=== PATIENT | female | born 1985 | race Caucasian/White ===

== ENCOUNTER 2018-08-05 18:51 | Emergency (ER) | payer BC, OTHER ==
[2018-08-05] MEDS ORDERED: Ondansetron PF 4 MG/2 ML Vial ONE ×2 (19:20→21:43)
[2018-08-05] MEDS ORDERED: Morphine 4 MG/ML VIAL ONE ×2 (19:20→21:43)
[2018-08-05 20:35] LABS: ALT (SGPT) 19 U/L (8-55); AST (SGOT) 21 U/L (5-34); Albumin 4.5 g/dL (3.5-5.0); Alkaline Phosphatase 98 U/L (40-150); Anion Gap 19 mmol/L (10-20); BUN (Urea Nitrogen) 9 mg/dL (7.0-18.7); Bilirubin, Total 0.6 mg/dL (0.2-1.2); Calc. Creatinine Clearance 0 mL/min (70-130); Calcium 11.9 mg/dL (7.8-10.44); Carbon Dioxide 24 mmol/L (22-29); Chloride 90 mmol/L (98-107); Estimated GFR-MDRD 71; Glucose 277 mg/dL (70-105); Lipase 58 U/L (8-78); Potassium 3.4 mmol/L (3.5-5.1); Protein, Total 8.5 g/dL (6.0-8.3); Sodium 130 mmol/L (136-145)
[2018-08-05 20:42] LABS: #Basophils 0.1 thou/uL (0.0-0.2); #Eosinphils 0.3 thou/uL (0.0-0.7); #Lymphocytes 2.3 thou/uL (1.20-3.40); #Monocytes 0.6 thou/uL (0.11-0.59); #Neutrophils 9.2 thou/uL (1.40-6.50); %Basophils 0.4 % (0.0-1.0); %Eosinophils 2.2 % (0.0-10.0); %Lymphocytes 18.7 % (21.0-51.0); %Neutrophils 73.7 % (42.0-75.0); Hemoglobin 14.6 g/dL (12.0-16.0); Mean Corpuscular HGB CONC 36.2 g/dL (32.0-36.0); Mean Corpuscular Volume 85.6 fL (78.0-98.0); Mean Platelet Volume 7.8 fL (7.4-10.4); Platelet Count 392 thou/uL (130-400); RBC Distribution Width 13.4 % (11.5-14.5); White Blood Cell (WBC) Count 12.5 thou/uL (4.8-10.8)
[2018-08-05 20:44] LABS: Bilirubin Negative (Negative); Blood, Urine Trace (Negative); Clarity CLOUDY (Clear); Glucose, Urine (Dipstick) 100 mg/dL (Negative); Leukocyte Negative (Negative); Nitrite Negative (Negative); Protein, Urine (Dipstick) 100 mg/dL (Neg-Trace); Specific Gravity, Urine 1.014 (1.002-1.036); Urobilinogen 0.2 mg/dL (0.2-1.0)
[2018-08-05 20:46] LABS: Bacteria/HPF None Seen HPF (None Seen); Hyaline Casts/LPF 0-3 HYALINE CAST LPF (0-3 Hyaline); RBC/HPF 0-3 HPF (0-3); Squamous Epithelial 0-3 HPF (0-3)
[2018-08-05 20:47] LABS: Pregnancy Test - Urine (BHCG) Negative (Negative); Pregu Control Background? CLEAR/WHITE (CLR/WHITE); Pregu Control Bar Appear? YES (CONTROL BAR); Specific Gravity 1.014 (1.002-1.036)
--- NOTE | 2018-08-05 21:23 | CT ---
CT OF ABDOMEN AND PELVIS PERFORMED WITH INTRAVENOUS CONTRAST ENHANCEMENT: 08/05/18 HISTORY: Diffuse abdominal pain. History of colitis. UTI one week ago. The lung bases are clear. There are fatty changes of the liver which is enlarged measuring 26 cm in length. There is an enhanci ng focus in the dome of the liver which has probably a small hemangioma. It could indicate an area of fatty sparing. The spleen measures 14 cm in length but is a somewhat thin elongated spleen. Pancreas and gallbladder regions appear unremarkable. Right and left adrenal glands are normal. Right and left kidneys are normal in size. There is a punct ate nonobstructing upper pole left renal calculus present. Tiny hypodensity involving the left kidney statistically most likely a cyst. There are no ureteral calculi identified. There is no significant periaortic adenopathy noted. There is slightly a claudio appearance to the mesentery with some small mesenteric nodes, nonspecific but po ssibly an adenitis. Some minimal fluid within the small bowel loops but not significantly distended. The colon is decompressed. CT OF PELVIS PERFORMED WITH CONTRAST ENHANCEMENT: The appendix is normal. There is no evidence of adenopathy, mass or free fluid. IMPRESSION: 1. Fatty change of the liver which is enlarged. 2. Nonobstructing upper pole left renal calculus. 3. Possible mild adenitis. POS: [facility]
== END 2018-08-05 22:43 | disposition home or self-care (01) ==
LOC: ERS 18:51
DX: R10.84 Generalized abdominal pain (principal); R11.2 Nausea with vomiting, unspecified; F17.210 Nicotine dependence, cigarettes, uncomplicated; I10 Essential (primary) hypertension; Z79.899 Other long term (current) drug therapy; Z79.891 Long term (current) use of opiate analgesic
CPT/HCPCS: 74177; 80053; 81003; 81015; 81025; 83690; 85025; 94760; J2270; J2405

== ENCOUNTER 2018-09-21 10:06 | Emergency (ER) | payer BC, OTHER ==
[2018-09-21] MEDS ORDERED: Lidocaine Viscous Sol 2% 15 ml UD Cup ONE (10:53)
[2018-09-21] MEDS ORDERED: Mag-Al 1200 mg/1200 mg/30 ML UDCUP ONE (10:53)
--- NOTE | 2018-09-21 10:54 | RAD ---
Exam: Chest one view HISTORY:Chest pain Comparison: None FINDINGS: Cardiac silhouette: Normal Pulmonary vessels: Normal Costophrenic angles: Clear LUNGS: No masses or consolidation. Pneumothorax: None Osseous abnormalities: None IMPRESSION: No acute cardiopulmonary process.
[2018-09-21 11:24] LABS: BHCG - Serum Negative (NEGATIVE); Pregs Control Background? CLEAR/WHITE (CLR/WHITE); Pregs Control Bar Appear? YES (CONTROL BAR)
[2018-09-21 11:39] LABS: Chloride 95 mmol/L (98-107); Potassium 4.2 mmol/L (3.5-5.1); Sodium 132 mmol/L (136-145)
[2018-09-21 11:40] LABS: Anion Gap 18 mmol/L (10-20); Carbon Dioxide 23 mmol/L (22-29)
[2018-09-21 11:42] LABS: BUN (Urea Nitrogen) 17 mg/dL (7.0-18.7); Calc. Creatinine Clearance 0 mL/min (70-130); Calcium 9.4 mg/dL (7.8-10.44); Estimated GFR-MDRD 83; Glucose 373 mg/dL (70-105)
[2018-09-21 11:43] LABS: AST (SGOT) 18 U/L (5-34); Albumin 3.7 g/dL (3.5-5.0); Alkaline Phosphatase 83 U/L (40-150); Bilirubin, Total 0.4 mg/dL (0.2-1.2); Globulin 1.9 g/dL (2.4-3.5); Protein, Total 5.6 g/dL (6.0-8.3)
[2018-09-21] MEDS ORDERED: Ketorolac Tromethamine 30 MG/ML VIAL ONE (11:43)
[2018-09-21 11:44] LABS: ALT (SGPT) 10 U/L (8-55)
[2018-09-21] MEDS ORDERED: Ondansetron PF 4 MG/2 ML Vial ONE (11:44)
[2018-09-21 12:29] LABS: Eosinophils 1 % (0-10); Hemoglobin 12.7 g/dL (12.0-16.0); Lymphocytes 6 % (21-51); MDiff Complete? YES; Mean Corpuscular HGB CONC 37.7 g/dL (32.0-36.0); Mean Corpuscular Hemoglobin 31.3 pg (27.0-31.0); Mean Platelet Volume 7.2 fL (7.4-10.4); Monocytes 7 % (0-10); Neutrophil 86 % (42-75); Platelet Count 277 thou/uL (130-400); Platelet Morphology Comment Appears Adequate; RBC Distribution Width 12.6 % (11.5-14.5); Red Blood Cell (RBC) Count 4.06 mill/uL (4.20-5.40); White Blood Cell (WBC) Count 14.9 thou/uL (4.8-10.8)
--- NOTE | 2018-09-21 13:48 | CT ---
Exam: CT angiogram of the chest HISTORY: Chest pain. COMPARISON: None TECHNIQUE: CT angiogram of the chest is performed in the axial plane. Three-dimensional reformatted i mages are submitted for interpretation FINDINGS: Mediastinum: No mass, lymphadenopathy or hematoma. HEART: Normal size. No significant pericardial fluid. Aorta: No aneurysm or dissection Upper solid abdominal viscera: No abnormality enhancement. Trachea and central bronchi: Patent Pleural spaces: No effusion Lung parenchyma: No masses or consolidation. Pneumothorax: None Osseous structures: No lytic or blastic lesions Pulmonary arteries: Adequate contrast opacification pulmonary arterial system to the level of lobar a rteries. No filling defect to suggest pulmonary embolism. Limited evaluation of the segmental and subsegmental arteries due to timing of contrast bolus IMPRESSION:No evidence of pulmonary artery embolism to the level of the lobar arteries.
[2018-09-21] MEDS ORDERED: ISOVUE-370 76%-LOCM 1 ML ONE (13:49)
== END 2018-09-21 14:46 | disposition home or self-care (01) ==
LOC: ERS 10:06
DX: R07.89 Other chest pain (principal); R73.9 Hyperglycemia, unspecified; N17.9 Acute kidney failure, unspecified; I10 Essential (primary) hypertension; J45.909 Unspecified asthma, uncomplicated; F32.9 Major depressive disorder, single episode, unspecified; F43.10 Post-traumatic stress disorder, unspecified; Z79.899 Other long term (current) drug therapy
CPT/HCPCS: 36416; 71045; 71275; 80053; 84484; 84703; 85025; 93005; 96361; 96374; 96375; J1885; J2405; Q9966

== ENCOUNTER 2018-09-27 19:27 | Inpatient (IN) | payer BC, OTHER ==
[~2018-09-27 19:27] MED LIST: Iopamidol 370 76% 100 ML VIAL ONE
[2018-09-27 20:20] LABS: Bilirubin Negative (Negative); Blood, Urine Negative (Negative); Clarity Clear (Clear); Glucose, Urine (Dipstick) Greater than 1000 mg/dL (Negative); Leukocyte Negative Leu/uL (Negative); Nitrite Negative (Negative); Protein, Urine (Dipstick) 30 mg/dL (Neg-Trace); RBC/HPF 0-3 HPF (0-3); Urobilinogen Normal mg/dL (Less than 2); WBC/HPF 0-3 HPF (0-3)
[2018-09-27 20:21] LABS: Bacteria/HPF 1+ HPF (None Seen)
[2018-09-27 20:23] LABS: Pregnancy Test - Urine (BHCG) Negative (Negative)
[2018-09-27 20:24] LABS: Pregu Control Background? CLEAR/WHITE (CLR/WHITE); Pregu Control Bar Appear? YES (CONTROL BAR); Specific Gravity 1.026 (1.002-1.036)
[2018-09-27 20:26] LABS: #Eosinphils 0.2 thou/uL (0.0-0.7); #Lymphocytes 2.3 thou/uL (1.20-3.40); #Monocytes 0.5 thou/uL (0.11-0.59); #Neutrophils 8.9 thou/uL (1.40-6.50); %Basophils 0.4 % (0.0-1.0); %Eosinophils 1.4 % (0.0-10.0); %Lymphocytes 19.3 % (21.0-51.0); %Monocytes 3.9 % (0.0-10.0); %Neutrophils 75.1 % (42.0-75.0); Hemoglobin 14.3 g/dL (12.0-16.0); Mean Corpuscular Hemoglobin 31.1 pg (27.0-31.0); Mean Corpuscular Volume 84.2 fL (78.0-98.0); Mean Platelet Volume 7.2 fL (7.4-10.4); Platelet Count 401 thou/uL (130-400); RBC Distribution Width 12.8 % (11.5-14.5); Red Blood Cell (RBC) Count 4.58 mill/uL (4.20-5.40); White Blood Cell (WBC) Count 11.8 thou/uL (4.8-10.8)
[2018-09-27 20:28] LABS: ALT (SGPT) 12 U/L (8-55); AST (SGOT) 22 U/L (5-34); Alkaline Phosphatase 129 U/L (40-150); Anion Gap 20 mmol/L (10-20); BUN (Urea Nitrogen) 13 mg/dL (7.0-18.7); Bilirubin, Total 0.3 mg/dL (0.2-1.2); Calc. Creatinine Clearance 0 mL/min (70-130); Calcium 10.6 mg/dL (7.8-10.44); Carbon Dioxide 20 mmol/L (22-29); Chloride 87 mmol/L (98-107); Estimated GFR-MDRD 64; Globulin 4.6 g/dL (2.4-3.5); Glucose 364 mg/dL (70-105); Lipase 37 U/L (8-78); Protein, Total 8.6 g/dL (6.0-8.3); Sodium 123 mmol/L (136-145)
[2018-09-27] MEDS ORDERED: Morphine 4 MG/ML VIAL ONE ×2 (20:30→22:52)
[2018-09-27] MEDS ORDERED: Ondansetron PF 4 MG/2 ML Vial ONE (20:30)
--- NOTE | 2018-09-27 21:07 | ULT ---
US Gallbladder RUQ History: Right upper quadrant pain Comparison: CT abdomen and pelvis July 2018 Findings: Real-time grayscale and color evaluation of the right upper quadrant of the abdomen was per formed. Diffuse increased hepatic echotexture without mass. Liver is enlarged measuring 23 cm. Gallbladder is normal. No pericholecystic fluid. Common bile duct is normal. No intrahepatic or extrahepatic biliary dilatation. Right kidney is andrew l without mass, hydronephrosis, or abnormal calcifications. Impression: Diffuse hepatic steatosis and hepatomegaly. No acute gallbladder pathology.
--- NOTE | 2018-09-27 22:39 | CT ---
CT Abdomen Pelvis W Con History: Right upper quadrant pain. Comparison: CT abdomen and pelvis July 2018 Findings: Lung bases are clear. No pericardial effusion. Hepatosplenomegaly with diffuse hepatic stea tosis. Heterogeneous attenuation of the liver at the gallbladder fossa. There is a round enhancing mass with in hepatic segment 8. Pancreas is unremarkable. Nonobstructive left inferior renal calculus measuring 3 x 3 mm. Small mass inferior pole left kidney contains macroscopic fat suggesting angiomyolipoma. The appendix is visualized and is normal. Pancreas is unremarkable. 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 Impression: 1. Diffuse hepatic steatosis and splenomegaly. 2. Mass within hepatic segment 8 measures approximately 15 mm likely/filling hemangioma versus a roun d focal fatty sparing. Adenoma can have a similar appearance. Nonemergent liver protocol MRI and 6 months-one year recommended. This will also be helpful to delineate the cause of the heterogeneous en hancement of segment 4B near the gallbladder fossa. 3. Nonobstructive left renal calculus. 4. Inferior pole left renal angiomyolipoma. 5. Normal appendix. No acute inflammatory process within the abdomen or pelvis.
[2018-09-28] MEDS ORDERED: Sodium Chloride 0.9% 1,000 ML IV SCH (00:50)
[2018-09-28] MEDS ORDERED: Ondansetron ODT 4 MG TAB SL PRN (00:50)
[2018-09-28] MEDS ORDERED: Acetaminophen 325 MG TAB PO PRN (00:50)
[2018-09-28] MEDS ORDERED: Ondansetron PF 4 MG/2 ML Vial IVP PRN (00:50)
[2018-09-28 01:15] VITALS: BMI 34.4
[2018-09-28] MEDS: Morphine 4 MG/ML VIAL SLOW IVP PRN ×2 (02:45→07:56)
[2018-09-28 02:49] LABS: Troponin I Less than 0.010 ng/mL (< 0.028)
[2018-09-28 06:02] LABS: Troponin I 0.013 ng/mL (< 0.028)
[2018-09-28] MEDS ORDERED: Bisacodyl 5 MG TAB PO PRN (08:21)
[2018-09-28] MEDS ORDERED: Dextrose 5% in Water 1,000 ML IV PRN (08:21)
[2018-09-28] MEDS ORDERED: Dextrose 50% Abboject 50 ML SYRINGE SLOW IVP PRN (08:21)
[2018-09-28] MEDS ORDERED: Non-Formulary Item 1 EACH (Clonazepam [Clonazepam] 2 MG) PO PRN (08:25)
[2018-09-28] MEDS ORDERED: Acetaminophen/Codeine 30-300mg Tablet PO PRN ×2 (08:33)
[2018-09-28] MEDS ORDERED: traMADol HCl 50 MG TAB PO PRN ×2 (08:34)
[2018-09-28] MEDS: Docusate 100 MG CAP PO SCH ×2 (08:54→20:55)
[2018-09-28] MEDS: Famotidine 20 MG TAB PO SCH (08:54)
[2018-09-28] MEDS: Enoxaparin Sodium 40 MG/0.4 ML SYRINGE SC SCH (08:54)
[2018-09-28] MEDS: PARoxetine 20 MG TAB PO SCH (08:55)
[2018-09-28] MEDS: Ondansetron ODT 4 MG TAB PO SCH ×3 (08:55→20:58)
[2018-09-28] MEDS: Sodium Chloride 0.9% 1,000 ML IV SCH ×2 (08:57→11:36)
[2018-09-28] MEDS ORDERED: Lisinopril 20 MG TAB PO SCH (09:00)
[2018-09-28] MEDS ORDERED: traMADol HCl 50 MG TAB PO SCH ×2 (09:00)
[2018-09-28] MEDS ORDERED: NORGESTREL ETHINYL ESTRADIOL PO SCH (09:00)
[2018-09-28] MEDS ORDERED: CRYSELLE PO SCH (09:00)
[2018-09-28] MEDS ORDERED: Docusate 100 MG CAP PO SCH (09:00)
[2018-09-28] MEDS ORDERED: Non-Formulary Item 1 EACH (Zantac 150 MG) PO SCH (09:00)
[2018-09-28] MEDS: clonazePAM 1 MG TAB PO PRN ×2 (09:02→20:56)
[2018-09-28] MEDS: Nicotine 21 MG PATCH TD SCH (09:02)
[2018-09-28] MEDS: HumaLOG 300 UNITS/3 ML VIAL SC PRN ×3 (11:31→22:56)
[2018-09-28 12:21] LABS: Potassium, Urine Less than 10.0 mmol/L; Sodium, Urine 38 mmol/L (Not Available)
[2018-09-28] MEDS: Morphine 2 MG/ML SYRINGE SLOW IVP PRN ×2 (13:49→20:56)
--- NOTE | 2018-09-28 15:20 | HP ---
PRIMARY CARE PROVIDER: None. CHIEF COMPLAINT: Abdominal pain. HISTORY OF PRESENT ILLNESS: Ms. Morris is a pleasant 32-year-old lady, who was seen at [facility] on September 28, 2018. She reports that she has had pain in her right upper quadrant over the last 7 days. She describes it as sharp, constant, currently 2/10 after receiving pain medications, accompanied by nausea and decreased appetite, no known aggravating or relieving factors, nonradiating. She reports that she was seen in the emergency room on September 24, 2018, for the pain. She was also found to be hyperglycemic at that time. She reports that her symptoms have not been improving. She therefore came to the emergency room again. Upon questioning, she does endorse polyuria, polydipsia, and polyphagia over the last few weeks. She also reports that she has lost quite a bit of weight. REVIEW OF SYSTEMS: All systems were reviewed and found to be negative except for the pertinent positives mentioned above. PAST MEDICAL HISTORY: Hypertension; acute kidney injury, resolved; colitis; mesenteric adenitis; asthma; and hyperglycemia. PAST SURGICAL HISTORY: Tonsillectomy. PSYCHIATRIC HISTORY: Major depressive disorder and PTSD. SOCIAL HISTORY: The patient reports smoking one cigarette a day currently, but in the recent past, she was on one pack of cigarettes a day. She reports using marijuana 1 to 2 times a week. She denies alcohol use. FAMILY HISTORY: Diabetes mellitus in her maternal great grandmother. ALLERGIES: NO KNOWN DRUG ALLERGIES. CURRENT MEDICATIONS: 1. Clonazepam 2 mg 3 times a day as needed. 2. Docusate 200 mg 2 times a day. 3. Lisinopril/hydrochlorothiazide 20/25 mg tablets, 2 tablets daily. 4. Cryselle-28 one tablet daily. 5. Prilosec 10 mg at bedtime. 6. Zofran 4 mg 3 times a day. 7. Paxil 20 mg daily. 8. Tramadol 100 mg daily. 9. Zantac 150 mg daily. PHYSICAL EXAMINATION: GENERAL: On examination, Ms. Morris is awake and alert, not in acute distress. VITAL SIGNS: Blood pressure is 128/59, pulse 84, respiratory rate 18, and oxygen saturation 99% on room air. She is afebrile. She is obese, with a BMI of 37.9. EYES: No scleral icterus, no conjunctival pallor. ENT: Dry mucosal membranes. No oropharyngeal erythema or exudates. NECK: Supple, nontender, trachea is midline. RESPIRATORY: Accessory muscles of breathing are not active. Chest wall movements are symmetric bilaterally. Lungs are clear to auscultation without wheeze, rhonchi, or crepitations. CARDIOVASCULAR: S1 and S2 are heard, regular. Peripheral pulses palpable. No carotid bruit. No pericardial rub. ABDOMEN: Soft, mild right upper quadrant tenderness. No guarding or rigidity. Bowel sounds are heard. No hepatomegaly. No splenomegaly. Mcclure sign is negative. NEUROLOGIC: Cranial nerves 2 through 12 are intact. MUSCULOSKELETAL: Power is 5/5 in all 4 extremities. SKIN: Multiple tattoos, no rashes or nodules. LYMPHATIC: No cervical lymphadenopathy. PSYCHIATRIC: Normal mood, normal affect. The patient is oriented to person, place, and time. LABORATORY DATA: Ms. Morris's labs and investigations were reviewed. A 12-lead electrocardiogram shows normal sinus rhythm, no ST changes to suggest an acute coronary syndrome. Abdominal ultrasound showed diffuse hepatic steatosis and hepatomegaly, no acute gallbladder pathology. CT scan of the abdomen and pelvis with contrast showed diffuse hepatic steatosis and splenomegaly, mass within hepatic segment 8 measuring approximately 15 mm, likely filling hemangioma versus a round focal fatty sparing. Adenoma can have a similar appearance. Radiologist recommends nonemergent liver protocol MRI in 6 months to 1 year. She also has nonobstructive left renal calculus, inferior pole left renal angiomyolipoma, and normal appendix. She has white count with 11,800 white cells, of which 75% are neutrophils, normal hemoglobin, elevated platelet count of 401,000, decreased sodium of 123, normal potassium, normal creatinine, elevated calcium of 10.6, unremarkable LFTs, and normal lipase. Urinalysis is negative for nitrite and leukocyte esterase, positive for ketones, glucose, and protein. She also has slightly decreased carbon dioxide of 20 and anion gap of 20. ASSESSMENT AND PLAN: Ms. Morris is a pleasant 32-year-old lady, who was seen at [facility] on September 28, 2018. Her problem list includes: 1. Hyponatremia: Ms. Morris is presenting with hyponatremia, most likely secondary to thiazide diuretic use. We will initiate hyponatremia workup. We will hold thiazide diuretic. We will provide intravenous normal saline and recheck sodium level. 2. Newly diagnosed diabetes mellitus type 2: We will start the patient on Accu-Cheks and insulin sliding scale, metformin, and glipizide. We will check hemoglobin A1c. 3. Hypertension: We will continue lisinopril, discontinue hydrochlorothiazide, monitor vital signs, and titrate antihypertensives as needed. 4. Tobacco use: The patient has been counseled regarding tobacco cessation. We will start nicotine replacement therapy. 5. Marijuana use: The patient has been counseled regarding cessation of marijuana. Many thanks for allowing me to participate in Ms. Morris's care. Please feel free to contact me with any questions or concerns. LEVEL OF RISK: Moderate. LEVEL OF COMPLEXITY: Moderate. Job ID: [id number]
[2018-09-28 15:37] LABS: Free T4 (Free Thyroxine) 0.99 ng/dL (0.70-1.48)
[2018-09-28] MEDS: metFORMIN 500 MG TAB PO SCH (16:37)
[2018-09-28] MEDS: Lisinopril 20 MG TAB PO SCH (20:56)
[2018-09-28] MEDS ORDERED: Non-Formulary Item 1 EACH (Omeprazole Magnesium [Prilosec] 10 MG) PO SCH (21:00)
[2018-09-29] MEDS: Sodium Chloride 0.9% 1,000 ML IV SCH ×2 (03:33→17:42)
[2018-09-29] MEDS: Morphine 2 MG/ML SYRINGE SLOW IVP PRN ×4 (03:37→21:18)
[2018-09-29 05:41] LABS: #Basophils 0.1 thou/uL (0.0-0.2); #Eosinphils 0.2 thou/uL (0.0-0.7); #Lymphocytes 2.2 thou/uL (1.20-3.40); #Monocytes 0.5 thou/uL (0.11-0.59); #Neutrophils 5.7 thou/uL (1.40-6.50); %Basophils 1.1 % (0.0-1.0); %Eosinophils 1.9 % (0.0-10.0); %Monocytes 5.4 % (0.0-10.0); %Neutrophils 66.6 % (42.0-75.0); Hemoglobin 13.2 g/dL (12.0-16.0); Mean Corpuscular Hemoglobin 30.9 pg (27.0-31.0); Mean Corpuscular Volume 88.4 fL (78.0-98.0); Mean Platelet Volume 7.4 fL (7.4-10.4); Platelet Count 285 thou/uL (130-400); RBC Distribution Width 13.1 % (11.5-14.5); Red Blood Cell (RBC) Count 4.25 mill/uL (4.20-5.40); White Blood Cell (WBC) Count 8.6 thou/uL (4.8-10.8)
[2018-09-29 05:58] LABS: Anion Gap 17 mmol/L (10-20); BUN (Urea Nitrogen) 11 mg/dL (7.0-18.7); Calc. Creatinine Clearance 181 mL/min (70-130); Calcium 9.4 mg/dL (7.8-10.44); Carbon Dioxide 17 mmol/L (22-29); Chloride 98 mmol/L (98-107); Estimated GFR-MDRD 87; Glucose 248 mg/dL (70-105); Sodium 128 mmol/L (136-145)
[2018-09-29] MEDS: Docusate 100 MG CAP PO SCH ×2 (08:25→21:10)
[2018-09-29] MEDS: metFORMIN 500 MG TAB PO SCH ×2 (08:25→16:46)
[2018-09-29] MEDS: Nicotine 21 MG PATCH TD SCH (08:25)
[2018-09-29] MEDS: Enoxaparin Sodium 40 MG/0.4 ML SYRINGE SC SCH (08:25)
[2018-09-29] MEDS: Lisinopril 20 MG TAB PO SCH ×2 (08:25→21:10)
[2018-09-29] MEDS: Famotidine 20 MG TAB PO SCH (08:25)
[2018-09-29] MEDS: PARoxetine 20 MG TAB PO SCH (08:26)
[2018-09-29] MEDS: Ondansetron ODT 4 MG TAB PO SCH ×3 (08:26→21:10)
[2018-09-29] MEDS: diphenhydrAMINE 50 MG/ML VIAL IVP PRN ×2 (10:50→21:11)
[2018-09-29] MEDS: HumaLOG 300 UNITS/3 ML VIAL SC PRN ×2 (10:56→16:46)
[2018-09-29] MEDS ORDERED: Insulin Glargine 10 UNITS in Pre-Filled Syringe 1 EACH SC SCH (13:45)
--- NOTE | 2018-09-29 14:09 | PDOC.HOSPP ---
- Subjective Encounter Date: 09/29/18 Encounter Time: 07:00 Subjective: Pt seen for followup re: hyponatremia. Says she feels better. No abdo pain, fevers or chills. - Objective Vital Signs & Weight: Vital Signs (12 hours) Temp Pulse Resp BP BP Pulse Ox 09/29/18 11:57 98 F 84 18 121/63 96 09/29/18 08:25 121/65 09/29/18 07:10 98.1 F 85 18 130/60 95 09/29/18 04:00 97.9 F 75 19 119/63 98 Weight Weight 242 lb I&O: 09/28/18 09/29/18 09/30/18 06:59 06:59 06:59 Intake Total 1800 Output Total 1500 Balance 300 Result Diagrams: 09/29/18 05:19 09/29/18 05:19 Additional Labs: Accuchecks 09/29/18 09/29/18 09/28/18 10:53 05:23 20:28 POC Glucose 308 H 301 H 314 H 09/28/18 16:43 POC Glucose 314 H Labs and investigations reviewed by me EKG Reviewed by me: Yes (Tele: NSR) ROS - Review of Systems Respiratory: denies: cough, shortness of breath, SOB with excertion, pleuritic pain, wheezing Cardiovascular: denies: chest pain, palpitations, orthopnea, paroxysmal noc. dyspnea, edema, light headedness - Medication Medications: Active Medications Generic Name Dose Route Start Last Admin Trade Name Freq PRN Reason Stop Dose Admin Clonazepam 2 mg 09/28/18 08:34 09/28/18 20:56 Klonopin PO 2 mg TIDPRN PRN Administration AGITATION Diphenhydramine HCl 25 mg 09/29/18 08:22 09/29/18 10:50 Benadryl IVP 25 mg Q6H PRN Administration Itching Docusate Sodium 200 mg 09/28/18 09:00 09/29/18 08:25 Colace PO 200 mg BID ACE Administration Enoxaparin Sodium 40 mg 09/28/18 09:00 09/29/18 08:25 Lovenox SC 40 mg 0900 ACE Administration Famotidine 20 mg 09/28/18 09:00 09/29/18 08:25 Pepcid PO 20 mg DAILY ACE Administration Glipizide 2.5 mg 09/29/18 08:00 09/29/18 08:25 Glucotrol Xl PO 2.5 mg QAM-WM ACE Administration Sodium Chloride 1,000 mls @ 70 mls/hr 09/28/18 08:30 09/29/18 03:33 Normal Saline 0.9% IV 1,000 mls .[id number] ACE Administration Insulin Human Lispro 0 units 09/28/18 08:21 09/29/18 10:56 Humalog SC 5 unit .MILD SLIDING SCALE PRN Administration Mild Correctional Scale Lisinopril 20 mg 09/28/18 21:00 09/29/18 08:25 Zestril PO 20 mg BID ACE Administration Metformin HCl 500 mg 09/28/18 17:00 09/29/18 08:25 Glucophage PO 500 mg BID-WM ACE Administration Morphine Sulfate 2 mg 09/28/18 08:38 09/29/18 08:30 Morphine SLOW IVP 2 mg Q4H PRN Administration Pain Nicotine 21 mg 09/28/18 09:00 09/29/18 08:25 Nicoderm Patch TD 21 mg Q24HR ACE Administration Ondansetron HCl 4 mg 09/28/18 09:00 09/29/18 08:26 Zofran Odt PO 4 mg TID ACE Administration Pantoprazole Sodium 40 mg 09/28/18 09:00 09/29/18 08:26 Protonix PO 40 mg DAILY ACE Administration Paroxetine HCl 20 mg 09/28/18 09:00 09/29/18 08:26 Paxil PO 20 mg DAILY ACE Administration Sodium Chloride 10 ml 09/28/18 09:00 09/29/18 08:26 Flush - Normal Saline IVF Not Given Q12HR ACE - Exam General - other findings: Obese Eye: anicteric sclera ENT: normocephalic atraumatic Neck: supple, no JVD Heart: RRR, no rubs Respiratory: CTAB, no wheezes Gastrointestinal: soft, non-tender, normal bowel sounds Skin: normal turgor Psychiatric: normal affect, normal behavior Hosp A/P (1) Hyponatremia Code(s): E87.1 - HYPO-OSMOLALITY AND HYPONATREMIA Status: Acute (2) DM2 (diabetes mellitus, type 2) Status: Acute (3) HTN (hypertension) Code(s): I10 - ESSENTIAL (PRIMARY) HYPERTENSION Status: Chronic (4) Tobacco abuse Code(s): Z72.0 - TOBACCO USE Status: Chronic (5) Marijuana use Code(s): F12.90 - CANNABIS USE, UNSPECIFIED, UNCOMPLICATED Status: Chronic - Plan plan discussed w/ family, out of bed/ambulate Sodium improved to 128, discontinue hydrochlorothiazide. Start lantus 10 units BID. Continue metformin and glipizide. BP controlled, continue lisinopril. Continue nicotine patch. Pt counseled re; stopping tobacco and marijuana use. Normal free T3, free T4 - recheck thyroid profile in six weeks.
[2018-09-29] MEDS: Insulin Glargine 10 UNITS in Pre-Filled Syringe 1 EACH SC SCH (21:14)
[2018-09-29] MEDS: clonazePAM 1 MG TAB PO PRN (23:01)
[2018-09-30] MEDS: Sodium Chloride 0.9% 1,000 ML IV SCH (04:23)
[2018-09-30] MEDS: Morphine 2 MG/ML SYRINGE SLOW IVP PRN (05:39)
[2018-09-30 06:24] LABS: #Basophils 0.1 thou/uL (0.0-0.2); #Eosinphils 0.3 thou/uL (0.0-0.7); #Lymphocytes 2.2 thou/uL (1.20-3.40); #Monocytes 0.5 thou/uL (0.11-0.59); #Neutrophils 5.1 thou/uL (1.40-6.50); %Basophils 1.1 % (0.0-1.0); %Eosinophils 3.3 % (0.0-10.0); %Lymphocytes 27.4 % (21.0-51.0); %Monocytes 5.9 % (0.0-10.0); %Neutrophils 62.3 % (42.0-75.0); Hemoglobin 11.5 g/dL (12.0-16.0); Mean Corpuscular HGB CONC 35.2 g/dL (32.0-36.0); Mean Corpuscular Hemoglobin 29.7 pg (27.0-31.0); Mean Corpuscular Volume 84.4 fL (78.0-98.0); Mean Platelet Volume 7.5 fL (7.4-10.4); Platelet Count 315 thou/uL (130-400); RBC Distribution Width 13.1 % (11.5-14.5); Red Blood Cell (RBC) Count 3.87 mill/uL (4.20-5.40); White Blood Cell (WBC) Count 8.1 thou/uL (4.8-10.8)
[2018-09-30 06:42] LABS: Anion Gap 15 mmol/L (10-20); BUN (Urea Nitrogen) 11 mg/dL (7.0-18.7); Calc. Creatinine Clearance 175 mL/min (70-130); Calcium 9.4 mg/dL (7.8-10.44); Carbon Dioxide 20 mmol/L (22-29); Chloride 100 mmol/L (98-107); Estimated GFR-MDRD 85; Glucose 254 mg/dL (70-105); Potassium 3.6 mmol/L (3.5-5.1); Sodium 131 mmol/L (136-145)
[2018-09-30] MEDS ORDERED: Insulin Glargine 10 UNITS in Pre-Filled Syringe 1 EACH SC SCH (09:00)
[2018-09-30] MEDS: Insulin Glargine 10 UNITS in Pre-Filled Syringe 1 EACH SC SCH (09:04)
[2018-09-30] MEDS: HumaLOG 300 UNITS/3 ML VIAL SC PRN (09:05)
[2018-09-30] MEDS: Enoxaparin Sodium 40 MG/0.4 ML SYRINGE SC SCH (09:07)
[2018-09-30] MEDS: Nicotine 21 MG PATCH TD SCH (09:08)
[2018-09-30] MEDS: PARoxetine 20 MG TAB PO SCH (09:11)
[2018-09-30] MEDS: metFORMIN 500 MG TAB PO SCH (09:11)
[2018-09-30] MEDS: Lisinopril 20 MG TAB PO SCH (09:11)
[2018-09-30] MEDS: Docusate 100 MG CAP PO SCH (09:11)
[2018-09-30] MEDS: Famotidine 20 MG TAB PO SCH (09:11)
[2018-09-30] MEDS: Ondansetron ODT 4 MG TAB PO SCH ×2 (09:12→15:03)
[2018-09-30] MEDS: clonazePAM 1 MG TAB PO PRN (09:20)
[2018-09-30] MEDS ORDERED: Metoclopramide HCl 10 MG/2 ML VIAL IVP SCH (09:45)
--- NOTE | 2018-09-30 17:55 | DIS ---
DATE OF ADMISSION: 09/28/2018 DATE OF DISCHARGE: 09/30/2018 PRIMARY CARE PROVIDER: None. DISCHARGE DIAGNOSES: 1. Hyponatremia. 2. Newly diagnosed diabetes mellitus. 3. Elevated TSH, normal free T4, and normal free T3. CONDITION OF PATIENT ON THE DAY OF DISCHARGE: Stable. I assessed Ms. Morris on the day of discharge. She denies any chest pain or shortness of breath. Vital signs are stable. S1 and S2 are heard, regular. Lungs are clear to auscultation bilaterally. FOLLOWUP APPOINTMENTS: The patient is advised to follow up with primary care provider in 3 to 5 days' time. DISCHARGE MEDICATIONS: 1. Clonazepam 2 mg 3 times a day as needed. 2. Docusate 200 mg 2 times a day. 3. Cryselle-28 one tablet daily. 4. Prilosec 10 mg at bedtime. 5. Zofran 4 mg 3 times a day. 6. Paroxetine 20 mg daily. 7. Tramadol 100 mg daily. 8. Zantac 150 mg daily. 9. Nicoderm CQ 21 mg daily patch. 10. Glipizide 2.5 mg daily. 11. Lantus insulin 10 units 2 times a day. 12. Lisinopril 20 mg 2 times a day. 13. Metformin 500 mg 2 times a day. HOSPITAL COURSE: Ms. Morris is a pleasant 32-year-old lady, who was admitted to [facility] on September 28, 2018, for hyponatremia and newly diagnosed diabetes mellitus. She received intravenous saline. Thiazide diuretic was discontinued. Her sodium improved to 131 by the day of discharge. She had mildly elevated TSH of 7.7505. Free T3 and free T4 were normal. She is advised to follow up with her primary care provider and have her thyroid profile rechecked in 6 weeks' time. Hemoglobin A1c during this hospitalization was 11.0. She has been started on metformin. She has also been started on Lantus insulin 10 units 2 times a day as well as glipizide. She is advised to follow up with primary care provider for management of diabetes mellitus. On the day of discharge, she has sodium of 131, potassium 3.6, creatinine 0.78. White count 8100, hemoglobin 11.5, and platelet count 315,000. Her presenting complaint at the emergency room was abdominal pain. CT scan of the abdomen showed diffuse hepatic steatosis and splenomegaly, probable hemangioma versus round focal fatty sparing versus adenoma in the liver. Radiologist recommends nonemergent liver protocol MRI in 6 months to 1 year. She also had a nonobstructive left renal calculus, inferior pole of the left renal angiomyolipoma, and normal appendix. For her abdominal pain, I am giving her a prescription of Tylenol No. 3, one tablet every 6 hours as needed, 20 doses to be dispensed. On the day of discharge, she has white count 8100, hemoglobin 11.5, platelet count 315,000. Sodium 131, potassium 3.6, and creatinine 0.78. Many thanks for allowing me to participate in Ms. Morris's care. Please feel free to contact me with any questions or concerns. DISCHARGE DESTINATION: Home. TOTAL AMOUNT OF TIME SPENT COORDINATING THIS DISCHARGE: 31 minutes. Job ID: [id number]
[2018-09-30 18:45] VITALS: BP 124/70; TEMP 97.6
== END 2018-09-30 15:45 | disposition home or self-care (01) | DRG 638 ==
LOC: ERS 19:27 → 2NO 09-28 00:22
PROVIDERS: ADMIT Hospitalist; ATTEND Hospitalist
DX: E11.65 Type 2 diabetes mellitus with hyperglycemia (principal); E87.1 Hypo-osmolality and hyponatremia; J45.909 Unspecified asthma, uncomplicated; F32.9 Major depressive disorder, single episode, unspecified; T50.2X5A Adverse effect of carbonic-anhydrase inhibitors, benzothiadiazides and other diuretics, initial encounter; F12.90 Cannabis use, unspecified, uncomplicated; F43.10 Post-traumatic stress disorder, unspecified; E66.9 Obesity, unspecified; F17.210 Nicotine dependence, cigarettes, uncomplicated; I10 Essential (primary) hypertension; Z79.899 Other long term (current) drug therapy; Z68.37 Body mass index [BMI] 37.0-37.9, adult
CPT/HCPCS: 36415; 36416; 74177; 76705; 80048; 80053; 81003; 81015; 81025; 82436; 82570; 83036; 83690; 83930; 83935; 84133; 84300; 84439; 84443; 84481; 84484; 85025; 90471; 90732; 93005; 94760; 96361; 96374; 96375; 96376; G0009; J1200; J1650; J1815; J2270; J2405; J2765; Q0162; Q9967

== ENCOUNTER 2018-10-03 11:19 | Emergency (ER) | payer BC, OTHER ==
[2018-10-03 12:14] LABS: #Eosinphils 0.2 thou/uL (0.0-0.7); #Lymphocytes 1.3 thou/uL (1.20-3.40); #Monocytes 0.4 thou/uL (0.11-0.59); #Neutrophils 7.8 thou/uL (1.40-6.50); %Basophils 0.4 % (0.0-1.0); %Eosinophils 1.8 % (0.0-10.0); %Lymphocytes 13.5 % (21.0-51.0); %Monocytes 4.2 % (0.0-10.0); %Neutrophils 80.1 % (42.0-75.0); Hemoglobin 11.5 g/dL (12.0-16.0); Mean Corpuscular HGB CONC 36.1 g/dL (32.0-36.0); Mean Corpuscular Hemoglobin 30.2 pg (27.0-31.0); Mean Corpuscular Volume 83.6 fL (78.0-98.0); Mean Platelet Volume 7.2 fL (7.4-10.4); Platelet Count 333 thou/uL (130-400); RBC Distribution Width 13.1 % (11.5-14.5); White Blood Cell (WBC) Count 9.8 thou/uL (4.8-10.8)
[2018-10-03 12:34] LABS: ALT (SGPT) 11 U/L (8-55); AST (SGOT) 14 U/L (5-34); Albumin 3.6 g/dL (3.5-5.0); Alkaline Phosphatase 97 U/L (40-150); Anion Gap 13 mmol/L (10-20); BUN (Urea Nitrogen) 9 mg/dL (7.0-18.7); Bilirubin, Total 0.3 mg/dL (0.2-1.2); Calc. Creatinine Clearance 0 mL/min (70-130); Calcium 9.4 mg/dL (7.8-10.44); Carbon Dioxide 23 mmol/L (22-29); Chloride 99 mmol/L (98-107); Estimated GFR-MDRD Greater than 90; Glucose 303 mg/dL (70-105); Lipase 44 U/L (8-78); Protein, Total 6.6 g/dL (6.0-8.3); Sodium 131 mmol/L (136-145)
[2018-10-03] MEDS ORDERED: Ketorolac Tromethamine 30 MG/ML VIAL ONE (13:49)
[2018-10-03 15:11] LABS: Bilirubin Negative (Negative); Blood, Urine Negative (Negative); Clarity Clear (Clear); Glucose, Urine (Dipstick) Greater than 1000 mg/dL (Negative); Leukocyte Negative Leu/uL (Negative); Nitrite Negative (Negative); Protein, Urine (Dipstick) Negative (Neg-Trace); Urobilinogen Normal mg/dL (Less than 2)
[2018-10-03 15:13] LABS: Pregnancy Test - Urine (BHCG) Negative (Negative); Pregu Control Background? CLEAR/WHITE (CLR/WHITE); Pregu Control Bar Appear? YES (CONTROL BAR); Specific Gravity 1.016 (1.002-1.036)
[2018-10-03] MEDS ORDERED: Iopamidol 370 76% 50 ML VIAL FS ONE (16:00)
[2018-10-03] MEDS ORDERED: ISOVUE-370 76%-LOCM 1 ML ONE (16:00)
--- NOTE | 2018-10-03 16:42 | CT ---
CT ABDOMEN AND PELVIS WITH IV CONTRAST: 10/03/18 HISTORY: Right lower quadrant abdominal pain. Patient states pain radiates to right flank and groin region. Kamaljit lepe reports history of abdominal pain and diarrhea for two months. COMPARISON: 09/27/18 and 08/05/18. FINDINGS: There is minimal bibasilar atelectasis. The liver remains enlarged measuring 22.8 cm in craniocaudal dimensions. The liver does demonstrate d ecreased attenuation suggesting diffuse fatty infiltration. There is an area of mild fatty sparing se en in the posterior aspect medial segment of the left hepatic lobe with lower density area now presen t in this region which could be related to more focal area of fatty infiltration, but if this does re present fatty infiltration, this does have a greater degree of decreased density compared to the rebecca siomara of the liver. Previously noted mildly enhancing mass in the dome of the liver is again seen again in hepatic segmen t 8. MRI was recommended on prior exam. The spleen remains enlarged measuring 16.3 cm in craniocaudal dimensions. There is inflammatory stranding seen adjacent to the region of the pancreatic head and the duodenum a s well as in the right paracolic gutter. There is thickening of the coreas of the second portion of th e duodenum. 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 There is no fluid collection seen to suggest an a bscess. The pancreas otherwise has a normal CT appearance. A punctate nonobstructing inferior pole left renal calculus is again identified. The bilateral adrenal glands, right kidney, urinary bladder, uterus, and adnexal structures demonstra te a normal CT appearance. Minimal amount of fluid is seen within the pelvis. The appendix is visualized and normal in caliber. The opacified small bowel has a normal appearance. Contrast is seen in the distal esophagus which may be related to gastroesophageal reflux. No other interval change from prior exam. IMPRESSION: 1. 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 Correlation with laboratory values for pancreatitis is recommended. 2. Stable subtle rounded enhancing lesion in the dome of the liver (hepatic segment 8). As recom mended on prior exam, MRI examination in six months is suggested. In addition, further evaluation of the area of heterogeneity adjacent to the region of the gallbladder fossa in segment IVB can be perfo rmed as was also recommended on the prior exam. 3. Nonobstructing inferior pole left renal calculus with suggestion of a tiny angiomyolipoma inf erior pole left kidney stable from prior studies. POS: [facility]
[2018-10-03] MEDS ORDERED: Metoclopramide HCl 10 MG/2 ML VIAL ONE (17:05)
== END 2018-10-03 17:55 | disposition home or self-care (01) ==
LOC: ERS 11:19
DX: N20.0 Calculus of kidney (principal); E11.43 Type 2 diabetes mellitus with diabetic autonomic (poly)neuropathy; K31.84 Gastroparesis; I10 Essential (primary) hypertension; J45.909 Unspecified asthma, uncomplicated; F32.9 Major depressive disorder, single episode, unspecified; F43.10 Post-traumatic stress disorder, unspecified; Z79.899 Other long term (current) drug therapy; Z79.4 Long term (current) use of insulin
CPT/HCPCS: 36415; 74177; 80053; 81003; 81025; 83605; 83690; 85025; 96361; 96365; 96375; J1885; J2765

== ENCOUNTER 2018-10-28 10:31 | Outpatient (CLI) | payer BC, OTHER ==
[2018-10-28] MEDS ORDERED: Gadobenate Dimeglumine 529 MG/1 ML (20ML VIAL) ONE (10:54)
--- NOTE | 2018-10-28 12:55 | MRI ---
EXAM: MRI of the abdomen without and with contrast COMPARISON: CT abdomen/pelvis 10/03/2018, 08/05/2018 HISTORY: Angiomyolipoma of the kidney TECHNIQUE: Multiplanar multi sequence MR images were taken of the abdomen without and with IV contras t. FINDINGS: Liver: There is a 1.8 cm focus of slight increased T2 signal without significant enhancement to the r ight of the falciform ligament. This demonstrates loss of signal on out of phase images consistent with fat. No significant dropout on out of phase images. Gallbladder: No filling defects or gallbladder wall thickening. Common bile duct: Normal caliber without filling defects Adrenal glands: Unremarkable. Kidneys: There is an 11 mm well-circumscribed nonenhancing cyst in the left kidney. No other renal le sions are identified. Spleen: Unremarkable. Pancreas: Unremarkable. Retroperitoneum: No enlarged lymph nodes Bones: No marrow signal abnormality. IMPRESSION: 1. The lesion in the liver likely represents focal fatty infiltration. 2. The left renal lesion represents a cyst and not an angiomyolipoma.
== END 2018-10-28 10:32 | disposition home or self-care (01) ==
LOC: BICMRI 10:31
PROVIDERS: ATTEND Student in an Organized Health Care Education/Training Program
DX: D17.71 Benign lipomatous neoplasm of kidney (principal); K76.9 Liver disease, unspecified; N28.1 Cyst of kidney, acquired
CPT/HCPCS: 74183; A9577

== ENCOUNTER 2018-11-14 11:51 | Emergency (ER) | payer BC, OTHER ==
[2018-11-14 12:20] LABS: #Eosinphils 1.5 thou/uL (0.0-0.7); #Lymphocytes 2.3 thou/uL (1.20-3.40); #Monocytes 0.5 thou/uL (0.11-0.59); #Neutrophils 7.6 thou/uL (1.40-6.50); %Basophils 0.2 % (0.0-1.0); %Eosinophils 12.6 % (0.0-10.0); %Lymphocytes 19.2 % (21.0-51.0); %Monocytes 4.4 % (0.0-10.0); %Neutrophils 63.7 % (42.0-75.0); Hemoglobin 13.4 g/dL (12.0-16.0); Mean Corpuscular HGB CONC 34.5 g/dL (32.0-36.0); Mean Corpuscular Hemoglobin 29.6 pg (27.0-31.0); Mean Corpuscular Volume 85.8 fL (78.0-98.0); Mean Platelet Volume 6.8 fL (7.4-10.4); Platelet Count 443 thou/uL (130-400); RBC Distribution Width 14.1 % (11.5-14.5); Red Blood Cell (RBC) Count 4.52 mill/uL (4.20-5.40); White Blood Cell (WBC) Count 11.9 thou/uL (4.8-10.8)
[2018-11-14 12:42] LABS: ALT (SGPT) 14 U/L (8-55); AST (SGOT) 14 U/L (5-34); Albumin 4.2 g/dL (3.5-5.0); Alkaline Phosphatase 161 U/L (40-110); Anion Gap 14 mmol/L (10-20); BUN (Urea Nitrogen) 9 mg/dL (7.0-18.7); Bilirubin, Total 0.2 mg/dL (0.2-1.2); Calc. Creatinine Clearance 0 mL/min (70-130); Calcium 9.9 mg/dL (7.8-10.44); Carbon Dioxide 23 mmol/L (22-29); Chloride 102 mmol/L (98-107); Estimated GFR-MDRD 80; Globulin 3.2 g/dL (2.4-3.5); Glucose 96 mg/dL (70-105); Lipase 15 U/L (8-78); Potassium 3.5 mmol/L (3.5-5.1); Protein, Total 7.4 g/dL (6.0-8.3); Sodium 135 mmol/L (136-145)
[2018-11-14] MEDS ORDERED: Ondansetron PF 4 MG/2 ML Vial ONE (14:05)
[2018-11-14] MEDS ORDERED: Dicyclomine 20 MG TAB ONE (14:05)
[2018-11-14 15:09] LABS: Bilirubin Negative (Negative); Blood, Urine Negative (Negative); Clarity Clear (Clear); Glucose, Urine (Dipstick) Normal (Negative); Leukocyte Negative Leu/uL (Negative); Nitrite Negative (Negative); Protein, Urine (Dipstick) Negative (Neg-Trace); Urobilinogen Normal mg/dL (Less than 2)
[2018-11-14 15:12] LABS: Pregnancy Test - Urine (BHCG) Negative (Negative); Specific Gravity 1.012 (1.002-1.036)
[2018-11-14 15:13] LABS: Pregu Control Background? CLEAR/WHITE (CLR/WHITE); Pregu Control Bar Appear? YES (CONTROL BAR)
--- NOTE | 2018-11-14 16:25 | CT ---
CT ABDOMEN AND PELVIS WITH IV CONTRAST 11/14/2018 CLINICAL INFORMATION: Intermittent abdominal pain for 3 days mostly after eating COMPARISON: 10/03/2018. Technique: Multiple contiguous axial CT images are obtained through the abdomen and pelvis with IV contrast. Cor onal reformatted images are provided. FINDINGS: Lower Chest: within normal limits. Vessels: Abdominal aorta is normal in caliber. Abdomen: Portal vein:Not well assessed due to phase of imaging. Gallbladder: Within normal limits for CT imaging. Liver: within normal limits. The previously seen subtle enhancing lesion at the dome of the liver not ed on prior study is not well assessed on today's exam due to phase of imaging of the liver. Spleen: Enlarged measuring 14 cm in craniocaudal dimensions Pancreas: within normal limits. Previously noted inflammatory changes and fluid adjacent to the regio n of the pancreatic head have resolved when compared to prior study. Adrenals: within normal limits. Kidneys: A 3 mm nonobstructing calculus is seen in the left kidney. A subcentimeter too small to aidan acterize hypodense lesion is seen in the inferior pole left kidney. This is shown to represent cysts by MRI abdomen on 10/28/2018.. Bowel: Normal caliber. Appendix: The appendix is visualized and normal in caliber. Peritoneum: No ascites or free air; no fluid collection. Mesentery and Retroperitoneum: No enlarged mesenteric or retroperitoneal lymph nodes. Abdominal Wall: within normal limits. Pelvis: Reproductive Organs: No pelvic masses. Pelvis within normal limits. Bladder: Partially distended and grossly within normal limits Bones: There is pseudoarticulation of the left lateral mass of L5 with S1. IMPRESSION: 1. No acute findings are seen in the abdomen or pelvis. 2. Nonobstructing left renal calculus which is stable. 3. Stable hypodense lesion inferior pole left kidney shown to represent a cyst by prior MRI. 4. Resolution of inflammatory stranding in the right upper quadrant as well as resolution of thickeni ng of the coreas of the duodenum. 5. Splenomegaly, also noted on prior exam.
[2018-11-14] MEDS ORDERED: ISOVUE-370 76%-LOCM 1 ML ONE (18:18)
== END 2018-11-14 17:23 | disposition home or self-care (01) ==
LOC: ERS 11:51
DX: R10.11 Right upper quadrant pain (principal); R19.7 Diarrhea, unspecified; E11.9 Type 2 diabetes mellitus without complications; I10 Essential (primary) hypertension; J45.909 Unspecified asthma, uncomplicated; F32.9 Major depressive disorder, single episode, unspecified; F43.10 Post-traumatic stress disorder, unspecified
CPT/HCPCS: 36415; 36416; 74177; 80053; 81003; 81025; 82010; 83690; 85025; 96361; 96374; J2405; Q9966

== ENCOUNTER 2018-12-06 08:03 | Emergency (ER) | payer BC, OTHER ==
[2018-12-06] MEDS ORDERED: Ondansetron PF 4 MG/2 ML Vial ONE (08:44)
[2018-12-06] MEDS ORDERED: Morphine 4 MG/ML VIAL ONE (08:44)
[2018-12-06 09:12] LABS: #Basophils 0.1 thou/uL (0.0-0.2); #Eosinphils 1.4 thou/uL (0.0-0.7); #Monocytes 0.4 thou/uL (0.11-0.59); #Neutrophils 5.5 thou/uL (1.40-6.50); %Basophils 0.5 % (0.0-1.0); %Eosinophils 15.2 % (0.0-10.0); %Lymphocytes 21.3 % (21.0-51.0); %Monocytes 4.5 % (0.0-10.0); %Neutrophils 58.4 % (42.0-75.0); Hemoglobin 12.3 g/dL (12.0-16.0); Mean Corpuscular HGB CONC 35.1 g/dL (32.0-36.0); Mean Corpuscular Volume 85.4 fL (78.0-98.0); Platelet Count 358 thou/uL (130-400); RBC Distribution Width 13.4 % (11.5-14.5); Red Blood Cell (RBC) Count 4.09 mill/uL (4.20-5.40); White Blood Cell (WBC) Count 9.5 thou/uL (4.8-10.8)
--- NOTE | 2018-12-06 09:33 | RAD ---
PORTABLE CHEST 1 VIEW: DATE: 12/06/2018. TIME: 8:47 a.m. HISTORY: Chest pain. FINDINGS: Comparison is made with the exam of 09/21/2018. The heart size is normal. No lobar consolidation, pneumothoraces, bebo pulmonary edema, or pleural effusions are seen. IMPRESSION: No radiographic evidence of acute cardiopulmonary process. POS: [facility]
[2018-12-06 09:37] LABS: ALT (SGPT) 13 U/L (8-55); AST (SGOT) 8 U/L (5-34); Albumin 4.2 g/dL (3.5-5.0); Alkaline Phosphatase 107 U/L (40-110); Anion Gap 16 mmol/L (10-20); BUN (Urea Nitrogen) 16 mg/dL (7.0-18.7); Bilirubin, Total 0.3 mg/dL (0.2-1.2); CK (CPK) 26 U/L (29-168); Calc. Creatinine Clearance 0 mL/min (70-130); Calcium 10.2 mg/dL (7.8-10.44); Carbon Dioxide 26 mmol/L (22-29); Chloride 98 mmol/L (98-107); Estimated GFR-MDRD 89; Glucose 151 mg/dL (70-105); Lipase 31 U/L (8-78); Potassium 3.8 mmol/L (3.5-5.1); Protein, Total 7.2 g/dL (6.0-8.3); Sodium 136 mmol/L (136-145)
--- NOTE | 2018-12-07 14:07 | EKG ---
Test Reason : Blood Pressure : / mmHG Vent. Rate : 088 BPM Atrial Rate : 088 BPM P-R Int : 130 ms QRS Dur : 076 ms QT Int : 370 ms P-R-T Axes : -07 006 019 degrees QTc Int : 447 ms Normal sinus rhythm Normal ECG Confirmed by DOV NOBLE ([id number]), auto travel counselor PAUL DUMONT ([id number]) on 12/07/2018 2:06:48 PM Referred By: Confirmed By:DOV NOBLE
== END 2018-12-06 09:55 | disposition home or self-care (01) ==
LOC: ERS 08:03
DX: R07.89 Other chest pain (principal); R10.9 Unspecified abdominal pain; E11.9 Type 2 diabetes mellitus without complications; I10 Essential (primary) hypertension; J45.909 Unspecified asthma, uncomplicated; E78.5 Hyperlipidemia, unspecified; F32.9 Major depressive disorder, single episode, unspecified; F43.10 Post-traumatic stress disorder, unspecified; F41.9 Anxiety disorder, unspecified; Z79.899 Other long term (current) drug therapy; Z79.4 Long term (current) use of insulin
CPT/HCPCS: 71045; 80053; 82550; 83605; 83690; 84484; 85025; 93005; 94760; 96361; 96374; 96375; J2270; J2405

== ENCOUNTER 2019-07-23 12:14 | Emergency (ER) | payer SELFPAY, OTHER ==
[2019-07-24 11:03] LABS: SARS-CoV-2 MS2 Positive; SARS-CoV-2 N Gene Negative; SARS-CoV-2 S Gene Negative; SARS-CoV-2 orf1ab Negative
== END 2019-07-23 13:24 | disposition home or self-care (01) ==
LOC: ERS 12:14 → MERGE 12:14 → ERS 13:24
DX: B34.9 Viral infection, unspecified (principal); Z20.828 Contact with and (suspected) exposure to other viral communicable diseases
CPT/HCPCS: 87635; 99284; U0003